=== PATIENT | male | born 1990 ===

== ENCOUNTER 2017-04-08 11:34 | Emergency (ER) | payer MEDICAID ==
[2017-04-08 12:27] VITALS: BP 95/55
--- NOTE | 2017-04-08 14:23 | UC ---
Throat Pain/Nasal Samir HPI - HPI Summary HPI Summary: Pt presents with ST and mild cough for the last 3 days. He has also had a mild headache and felt feverish intermittently. Denies sinus symptoms, SOB, chest pain, abdominal pain, N/V/D/C - History of Current Complaint Hx Obtained From: Patient Onset/Duration: Gradual Onset Severity: Moderate Cough: Nonproductive <Pablo Linares - Last Filed: 04/08/17 17:16> <Shelly Damon - Last Filed: 04/08/17 18:06> - History of Current Complaint Chief Complaint: UCRespiratory Stated Complaint: SORE THROAT FEVER Time Seen by Provider: 04/08/17 14:23 - Allergies/Home Medications Allergies/Adverse Reactions: Allergies Allergy/AdvReac Type Severity Reaction Status Date / Time No Known Allergies Allergy Verified 04/08/17 12:21 Home Medications: Home Medications Bupropion XL* [Wellbutrin XL *] 150 mg PO DAILY 04/08/17 [History Confirmed ] Gabapentin CAP(*) [Neurontin 300 CAP(*)] 600 mg PO DAILY 04/08/17 [History Confirmed 04/08/17] traZODone TAB* [Desyrel TAB*] 50 mg PO DAILY 04/08/17 [History Confirmed ] PMH/Surg Hx/FS Hx/Imm Hx Previously Healthy: Yes - Surgical History Surgical History: None Surgery Procedure, Year, and Place: denies - Social History Occupation: Employed Full-time Lives: Alone Alcohol Use: None Substance Use Type: None Smoking Status (MU): Never Smoked Tobacco <Pablo Linares - Last Filed: 04/08/17 17:16> Review of Systems Constitutional: Negative Skin: Negative Eyes: Negative ENT: Sore Throat Respiratory: Cough Cardiovascular: Negative Gastrointestinal: Negative Neurological: Negative Psychological: Negative All Other Systems Reviewed And Are Negative: Yes <Pablo Linares - Last Filed: 04/08/17 17:16> Physical Exam Triage Information Reviewed: Yes Appearance: Well-Appearing, Well-Nourished Vital Signs: Initial Vital Signs Temp 98.4 F 04/08/17 12:24 Pulse 99 04/08/17 12:24 Resp 20 04/08/17 12:24 BP 95/55 04/08/17 12:24 Pulse Ox 100 04/08/17 12:24 Vital Signs Reviewed: Yes Eyes: Positive: Conjunctiva Clear. Negative: Conjunctiva Inflamed, Discharge ENT: Positive: Hearing grossly normal, Pharyngeal erythema, TMs normal, Tonsillar swelling - 2+, Tonsillar exudate, Uvula midline. Negative: Nasal congestion, Nasal drainage, TM bulging, TM dull, TM red, Muffled voice, Hoarse voice, Sinus tenderness Neck: Positive: Supple, Nontender, No Lymphadenopathy Respiratory: Positive: Chest non-tender, Lungs clear, Normal breath sounds, No respiratory distress, No accessory muscle use Cardiovascular: Positive: RRR, No Murmur, Pulses Normal Neurological: Positive: Alert Psychological: Positive: Age Appropriate Behavior Skin: Negative: rashes <Pablo Linares - Last Filed: 04/08/17 17:16> Vital Signs: Initial Vital Signs Temp 98.4 F 04/08/17 12:24 Pulse 99 04/08/17 12:24 Resp 20 04/08/17 12:24 BP 95/55 04/08/17 12:24 Pulse Ox 100 04/08/17 12:24 <Shelly Damon - Last Filed: 04/08/17 18:06> Throat Pain/Nasal Course/Dx - Course Course Of Treatment: POC strep pos - Amoxicillin 10 days - Differential Dx/Diagnosis Differential Diagnosis/HQI/PQRI: Influenza, Mononucleosis, Otitis Media, Peritonsillar Abscess, Pharyngitis, Sinusitis, Tonsillitis, URI Provider Diagnoses: Strep Pharyngitis <Pablo Linares - Last Filed: 04/08/17 17:16> Discharge <Pablo Linares - Last Filed: 04/08/17 17:16> <Shelly Damon - Last Filed: 04/08/17 18:06> - Discharge Plan Condition: Stable Disposition: HOME Prescriptions: Amoxicillin PO (*) [Amoxicillin 500 MG CAP*] 500 mg PO Q12H #20 cap Patient Education Materials: Strep Throat (ED) Referrals: No Primary Care Phys,NOPCP [Primary Care Provider] - Additional Instructions: If you develop a fever, SOB, chest pain, new or worsening symptoms - please call your PCP or go to the ED. Attestation Statement User Type: Provider - I was available for consult. This patient was seen by the [facility]. The patient was not presented to, seen by, or examined by me. -Berenice <Shelly Damon - Last Filed: 04/08/17 18:06>
== END 2017-04-08 14:36 | disposition home or self-care (01) ==
LOC: UCEAST 11:34 → MERGE 11:34 → UCEAST 14:36
DX: J02.0 Streptococcal pharyngitis (principal)
CPT/HCPCS: 87651; 99202; G0463